=== PATIENT | female | born 1975 | race Caucasian/White ===

== ENCOUNTER 2018-02-22 17:17 | Inpatient (IN) | payer MEDICAID ==
[~2018-02-22] VITALS: Ht 154.9 cm; Wt 95.7 kg
[2018-02-22 17:25] VITALS: BP 175/98
[2018-02-22] MEDS ORDERED: MORPHINE SULFATE 4 MG/ML SYR IVP ONE (17:55)
[2018-02-22 18:36] LABS: BASOPHILS # (AUTO) 0.1 K/uL (0.00-0.22); BASOPHILS % (AUTO) 1.5 % (0.0-2.0); EOSINOPHILS # (AUTO) 0.2 K/uL (0-0.4); HEMATOCRIT 41.1 % (36-48); HEMOGLOBIN 13.6 g/dL (12.0-16.0); LYMPHOCYTES # (AUTO) 2.6 K/uL (2.5-16.5); LYMPHOCYTES % (AUTO) 26.8 % (20.5-51.1); MEAN CORPUSCULAR HEMOGLOBIN 27 pg (27-31); MEAN CORPUSCULAR HGB CONC 33 g/dL (33-37); MEAN CORPUSCULAR VOLUME 82.1 fL (80-94); MONOCYTES # (AUTO) 0.5 K/uL (0.8-1.0); MONOCYTES % (AUTO) 5.3 % (1.7-9.3); NEUTROPHILS # (AUTO) 6.3 K/uL (1.8-7.7); NEUTROPHILS % (AUTO) 64.4 % (42.2-75.2); PLATELET COUNT (AUTO) 281 K/uL (140-450); RED CELL DISTRIBUTION WIDTH 13.3 % (11.6-13.7); WHITE BLOOD COUNT (AUTO) 9.8 K/uL (4.8-10.8)
[2018-02-22 18:42] LABS: ANION GAP 14.2 (8-16); CREATININE 0.9 mg/dL (0.6-1.3); POTASSIUM 3.2 mmol/L (3.5-5.1)
[2018-02-22 18:48] LABS: ALBUMIN 3.4 g/dL (3.4-5.0); TOTAL BILIRUBIN 0.3 mg/dL (0.0-1.0)
[2018-02-22 20:26] LABS: APPEARANCE,URINE CLEAR (CLEAR); BILIRUBIN,URINE SMALL (NEGATIVE); BLOOD, URINE MODERATE (NEGATIVE); COLOR,URINE YELLOW (YELLOW); LEUKOCYTE ESTERASE ,URINE NEGATIVE (NEGATIVE); NITRITE, URINE NEGATIVE (NEGATIVE); PH,URINE 6.5 (5.0-9.0); UGLUCOSE NEGATIVE (NEGATIVE)
[2018-02-22 20:29] LABS: AMYLASE 42 U/L (25-115); LIPASE 157 U/L (73-393)
[2018-02-22 20:31] LABS: RBC,URINE 3-10 (FEW) /HPF (0-5); WBC,URINE 0-5 (RARE) /HPF (0-5)
[2018-02-22 20:32] LABS: CALCIUM OXALATE CRYSTALS,UR 30-50 /HPF (None Seen)
[2018-02-22] MEDS ORDERED: HYDROcodone/APAP 7.5/325 MG 1 TAB PO PRN (22:00)
[2018-02-22] MEDS ORDERED: DOCUSATE SODIUM 100 MG GELCAP PO PRN (22:00)
[2018-02-22] MEDS ORDERED: ZOLPIDEM 5 MG TAB PO PRN (22:00)
[2018-02-22] MEDS ORDERED: ONDANSETRON 4 MG/2 ML VIAL IM/IVP PRN (22:00)
[2018-02-22] MEDS ORDERED: LORazepam 0.5 MG TAB PO PRN (22:00)
[2018-02-22] MEDS ORDERED: ACETAMINOPHEN 325 MG TAB PO PRN (22:00)
[2018-02-22] MEDS ORDERED: IBUP-2213 PO (22:04)
[2018-02-22] MEDS ORDERED: LISI-420 PO (22:04)
[2018-02-22 22:35] VITALS: BP 154/92
[2018-02-22 22:37] LABS: PROTHROMBIN TIME 9.3 secs (10.8-13.4)
[2018-02-22] MEDS ORDERED: KETOROLAC 30 MG/ML VIAL IVP PRN (22:40)
[2018-02-22 22:41] LABS: BARBITURATE, URINE NEG. ng/ml (NEG <=200); BENZODIAZEPINE, URINE NEG. ng/mL (NEG <=200); CANNABINOID, URINE NEG. ng/mL (NEG <=50); COCAINE, URINE NEG. ng/mL (NEG <=300); OPIATE, URINE POS. ng/mL (NEG <=2000); PHENCYCLIDINE SCREEN,URINE NEG. ng/mL (NEG <=25)
[2018-02-22 22:42] LABS: FREE T4 (FREE THYROXINE) 0.96 ng/dL (0.76-1.46); MAGNESIUM 1.8 mg/dL (1.8-2.4); PHOSPHORUS 1.9 mg/dL (2.5-4.9); THYROID STIMULATING HORMONE 2.09 uIU/mL (0.34-3.74)
[2018-02-22] MEDS: NACL 0.9% 1,000 ML IV SCH (22:55)
[2018-02-22] MEDS ORDERED: KETOROLAC 30 MG/ML VIAL ONE (22:59)
[2018-02-22] MEDS ORDERED: PANTOPRAZOLE 40 MG INJ VIAL IVP SCH (23:30)
[2018-02-22] MEDS ORDERED: ALUMINUM HYD/MAG/SIMETHICONE 30 ML UDC PO SCH (23:30)
[2018-02-23] MEDS ORDERED: KCL 20 MEQ/WATER INJ PREMIX 100 ML IV SCH (00:30)
[2018-02-23] MEDS ORDERED: SODIUM PHOS / POTASSIUM PHOS 1 PKT PDR PO SCH (01:00)
[2018-02-23] MEDS ORDERED: INFLUENZA VIRUS VACCINE QUAD 0.5 ML SYR IMVAC PRN (01:15)
[2018-02-23] MEDS ORDERED: POTASSIUM CHLORIDE 10 MEQ TABER PO SCH (02:00)
[2018-02-23] MEDS: PNEUMOCOCCAL VACCINE 23 MCG/0.5 ML VIAL IMVAC PRN (02:53)
[2018-02-23 05:59] VITALS: BP 122/69
[2018-02-23 07:30] LABS: BASOPHILS # (AUTO) 0.1 K/uL (0.00-0.22); BASOPHILS % (AUTO) 0.7 % (0.0-2.0); EOSINOPHILS # (AUTO) 0.2 K/uL (0-0.4); EOSINOPHILS % (AUTO) 1.6 % (0.0-4.0); HEMATOCRIT 40.8 % (36-48); HEMOGLOBIN 13.6 g/dL (12.0-16.0); LYMPHOCYTES # (AUTO) 2.3 K/uL (2.5-16.5); LYMPHOCYTES % (AUTO) 23.8 % (20.5-51.1); MEAN CORPUSCULAR HEMOGLOBIN 27 pg (27-31); MEAN CORPUSCULAR HGB CONC 33 g/dL (33-37); MEAN CORPUSCULAR VOLUME 82.1 fL (80-94); MONOCYTES # (AUTO) 0.5 K/uL (0.8-1.0); MONOCYTES % (AUTO) 4.9 % (1.7-9.3); NEUTROPHILS # (AUTO) 6.7 K/uL (1.8-7.7); PLATELET COUNT (AUTO) 268 K/uL (140-450); RED BLOOD CELL COUNT(AUTO) 4.97 MIL/uL (4.20-5.40); RED CELL DISTRIBUTION WIDTH 13.7 % (11.6-13.7); WHITE BLOOD COUNT (AUTO) 9.7 K/uL (4.8-10.8)
[2018-02-23 07:43] LABS: ANION GAP 11.2 (8-16); CARBON DIOXIDE 25.9 mmol/L (21-32); CREATININE 0.6 mg/dL (0.6-1.3); POTASSIUM 4.1 mmol/L (3.5-5.1)
[2018-02-23 08:00] VITALS: BP 113/62
[2018-02-23] MEDS: NACL 0.9% 1,000 ML IV SCH ×2 (08:49→18:50)
[2018-02-23] MEDS: amLODIPine 5 MG TAB PO SCH (09:01)
[2018-02-23 10:08] LABS: MAGNESIUM 1.8 mg/dL (1.8-2.4); PHOSPHORUS 3.6 mg/dL (2.5-4.9)
[2018-02-23 12:00] VITALS: BP 121/70
[2018-02-23] MEDS: SODIUM PHOS / POTASSIUM PHOS 1 PKT PDR PO SCH ×2 (12:48→17:28)
[2018-02-23 16:00] VITALS: BP 125/65
[2018-02-24] VITALS: BP 141/72
[2018-02-24] MEDS: NACL 0.9% 1,000 ML IV SCH (04:24)
[2018-02-24 07:08] LABS: BASOPHILS # (AUTO) 0.1 K/uL (0.00-0.22); BASOPHILS % (AUTO) 0.9 % (0.0-2.0); EOSINOPHILS # (AUTO) 0.2 K/uL (0-0.4); EOSINOPHILS % (AUTO) 3.1 % (0.0-4.0); HEMATOCRIT 39.2 % (36-48); HEMOGLOBIN 13.1 g/dL (12.0-16.0); LYMPHOCYTES # (AUTO) 2.1 K/uL (2.5-16.5); LYMPHOCYTES % (AUTO) 27.1 % (20.5-51.1); MEAN CORPUSCULAR HEMOGLOBIN 28 pg (27-31); MEAN CORPUSCULAR HGB CONC 33 g/dL (33-37); MEAN CORPUSCULAR VOLUME 82.5 fL (80-94); MONOCYTES # (AUTO) 0.4 K/uL (0.8-1.0); MONOCYTES % (AUTO) 4.9 % (1.7-9.3); PLATELET COUNT (AUTO) 257 K/uL (140-450); RED BLOOD CELL COUNT(AUTO) 4.75 MIL/uL (4.20-5.40); RED CELL DISTRIBUTION WIDTH 13.7 % (11.6-13.7); WHITE BLOOD COUNT (AUTO) 7.8 K/uL (4.8-10.8)
[2018-02-24 07:16] LABS: ANION GAP 8.2 (8-16); CARBON DIOXIDE 26.7 mmol/L (21-32); CREATININE 0.6 mg/dL (0.6-1.3); POTASSIUM 3.9 mmol/L (3.5-5.1)
[2018-02-24 08:04] VITALS: BP 126/73
[2018-02-24] MEDS: amLODIPine 5 MG TAB PO SCH (08:45)
[2018-02-24] MEDS ORDERED: MORPHINE SULFATE 2 MG/ML SYR IVP SCH (10:30)
[2018-02-24] MEDS ORDERED: AMLO5TAB4 PO (14:00)
[2018-02-24] MEDS ORDERED: DOCU-299 PO (14:00)
[2018-02-24] MEDS ORDERED: HYDR-5123 PO (14:36)
[2018-02-24] MEDS ORDERED: RANI150C PO (14:37)
[2018-02-24] MEDS: PNEUMOCOCCAL VACCINE 23 MCG/0.5 ML VIAL IMVAC PRN (16:10)
== END 2018-02-24 17:00 | disposition home or self-care (01) ==
LOC: MED 17:17 → MTU 22:03
PROVIDERS: ADMIT General Practice; ATTEND General Practice
PROC: 3E0234Z Introduction of Serum, Toxoid and Vaccine into Muscle, Percutaneous Approach (ICD-10-PCS; principal; 2018-02-24)
PROC: 3E02340 Introduction of Influenza Vaccine into Muscle, Percutaneous Approach (ICD-10-PCS; 2018-02-24)
DX: K80.20 Calculus of gallbladder without cholecystitis without obstruction (principal); R65.10 Systemic inflammatory response syndrome (SIRS) of non-infectious origin without acute organ dysfunction; E66.01 Morbid (severe) obesity due to excess calories; K76.0 Fatty (change of) liver, not elsewhere classified; E83.39 Other disorders of phosphorus metabolism; Z68.41 Body mass index [BMI] 40.0-44.9, adult; K21.9 Gastro-esophageal reflux disease without esophagitis; I10 Essential (primary) hypertension; E87.6 Hypokalemia; Z79.899 Other long term (current) drug therapy; Z98.51 Tubal ligation status; Z83.3 Family history of diabetes mellitus; Z82.49 Family history of ischemic heart disease and other diseases of the circulatory system; Z80.9 Family history of malignant neoplasm, unspecified; Z23 Encounter for immunization
CPT/HCPCS: 36415; 71045; 76705; 78445; 80048; 80053; 80305; 81001; 82150; 83036; 83690; 83735; 83880; 84100; 84439; 84443; 84484; 84703; 85025; 85610; 85730; 87081; 90658; 90732; 93005; 96374; 99285; C9113; J1885; J2270; J3480; J7030; Q0092

== ENCOUNTER 2019-04-15 12:16 | Inpatient (IN) | payer MEDICAID ==
[~2019-04-15] VITALS: Ht 152.4 cm; Wt 92.5 kg
[~2019-04-15 12:16] MED LIST: AMLO5TAB6 PO; DOCU-299 PO; HYDR-5123 PO; RANI150C PO
[2019-04-15 12:23] VITALS: BP 145/77
--- NOTE | 2019-04-15 12:37 | NUR ---
PT AMBULATED TO BED 8.
--- NOTE | 2019-04-15 12:50 | NUR ---
PT C/O RLQ ABDOMINAL AND MIDDLE/LOWER BACK PAIN, FEVER (NO FEVER AT TRIAGE), FREQUENCY, URGENCY OF URINATION AND HEMATURIA SINCE YESTERDAY. DENIES TRAUMA OR INJURY. RR LABORED. RR AT 34. LUNGS CLEAR BILTERALLY. R SIDE OF ABDOMEN TENDER TO TOUCH. BOWEL SOUNDS ACTIVE IN ALL 4 QUADRANTS. PT REPORTS 10/10 PAIN. PT LETHARGIC, SKIN HOT TO TOUCH. PT HAS BEEN TAKING PEDIALYTE AND MOTRIN WITH NO RELIEF FROM PAIN. PMH: KIDNEY STONE, HTN MEDS: AMLODIPINE, IBUPROFEN, AGRIFEN, AMOXICILLIN
--- NOTE | 2019-04-15 12:50 | NUR ---
[place] snyder in EDM - 04/15/19 at 1507 by LINDSEY EXPLAINED TO PT REGARDING CT ABD/PELVIS W CONTRAST BENEFIT AND RISKS. CONSENT SIGNED BY PT. PT AWAKE, ALERT.
--- NOTE | 2019-04-15 13:04 | NUR ---
iv inserted and labs drawn bedside
--- NOTE | 2019-04-15 13:09 | NUR ---
ORAL TEMP 99.0
[2019-04-15] MEDS ORDERED: SODIUM CHLORIDE FLUSH 10 ML SYR IVF STA (13:12)
--- NOTE | 2019-04-15 13:15 | NUR ---
ICE PACK APPLIED TO PTS FOREHEAD
--- NOTE | 2019-04-15 13:17 | NUR ---
PT AMB TO RESTROOM WITH STEADY GAIT
--- NOTE | 2019-04-15 13:27 | NUR ---
RECEIVED REPORT FROM ROSA ELENA IVY SPANISHEH SPEAKING. PT BEDSIDE MONITOR SHOWS ST 120S. BP AND O2 SATS IN NORMAL RANGE, ICE BAG TO FOREHEAD. DAUGHTER AT BEDSIDE. LOOKS LIKE PT IN PAIN, DAUGHTER STATED PT HAS RIGHT FLANK PAIN AND RADIATING TO RIGHT LOWER BACK.WILL NOTIFY .
[2019-04-15 13:44] LABS: APPEARANCE,URINE CLEAR (CLEAR); BILIRUBIN,URINE NEGATIVE (NEGATIVE); BLOOD, URINE 3+ (NEGATIVE); COLOR,URINE YELLOW (YELLOW); LEUKOCYTE ESTERASE ,URINE 1+ (NEGATIVE); NITRITE, URINE NEGATIVE (NEGATIVE); PH,URINE >=9.0 (5.0-9.0); UGLUCOSE NEGATIVE (NEGATIVE)
[2019-04-15 13:50] LABS: HEMATOCRIT 40.5 % (36-48); HEMOGLOBIN 13.5 g/dL (12.0-16.0); MEAN CORPUSCULAR HEMOGLOBIN 27 pg (27-31); MEAN CORPUSCULAR HGB CONC 33 g/dL (33-37); MEAN CORPUSCULAR VOLUME 79.6 fL (80-94); PLATELET COUNT (AUTO) 284 K/uL (140-450); RED BLOOD CELL COUNT(AUTO) 5.08 MIL/uL (4.20-5.40); RED CELL DISTRIBUTION WIDTH 13.5 % (11.6-13.7); WHITE BLOOD COUNT (AUTO) 20.4 K/uL (4.8-10.8)
[2019-04-15 14:10] LABS: RBC,URINE 50-80 /HPF (0-5); WBC,URINE 20-60 /HPF (0-5)
[2019-04-15 14:19] LABS: LYMPHOCYTES % (MANUAL) 9 % (20-46); MONOCYTES % (MANUAL) 5 % (5-12)
[2019-04-15] MEDS ORDERED: NACL 0.9% 1,000 ML IV SCH ×2 (14:19→16:16)
[2019-04-15] MEDS ORDERED: MORPHINE SULFATE 4 MG/ML SYR IVP ONE (14:20)
--- NOTE | 2019-04-15 14:50 | NUR ---
EXPLAINED TO PT REGARDING CT ABD/PELVIS W CONTRAST BENEFIT AND RISKS. CONSENT SIGNED BY PT. PT AWAKE, ALERT.
[2019-04-15 14:58] LABS: ANION GAP 17.4 (8-16); CARBON DIOXIDE 21.4 mmol/L (21-32); CREATININE 0.8 mg/dL (0.6-1.3); POTASSIUM 3.8 mmol/L (3.5-5.1)
[2019-04-15 14:59] LABS: ALBUMIN 3.6 g/dL (3.4-5.0)
--- NOTE | 2019-04-15 16:00 | NUR ---
PT STATED SHE FEELS BETTER. TWO DAUGHTERS AT BEDSIDE.
[2019-04-15] MEDS ORDERED: cefTRIAXone 1,000 MG in LIDOCAINE MPF 1% 2.1 ML IM SCH (16:20)
[2019-04-15] MEDS ORDERED: cefTRIAXone 1,000 MG VIAL ONE (16:31)
[2019-04-15] MEDS ORDERED: LIDOCAINE MPF 1% 5 ML ONE (16:32)
[2019-04-15] MEDS ORDERED: MORPHINE SULFATE 2 MG/ML SYR IVP PRN (16:35)
[2019-04-15] MEDS ORDERED: LISINOPRIL 20 MG TAB PO SCH (17:00)
[2019-04-15] MEDS: ACETAMINOPHEN 325 MG TAB PO PRN (17:08)
--- NOTE | 2019-04-15 17:10 | NUR ---
RECHED TEMP 100.6F. TYLENOL 650 MG GIVEN ORDERED.
[2019-04-15] MEDS ORDERED: LISINOPRIL 5 MG TAB PO SCH ×2 (17:11→17:12)
--- NOTE | 2019-04-15 17:25 | NUR ---
report given to yajaira MICHAELS. [facility]. pt's with pt. vitals stable.
--- NOTE | 2019-04-15 17:28 | NUR ---
PATIENT ARRIVED ON THE UNIT RECEIVED BEDSIDE REPORT FROM FRENCH BINDER ALDAIR. PT AMBULATED FROM THE GURNEY TO THE BED WITH A STEADY GAIT. PERFORMED HEAD TO TOE ASSESSMENT. OBTAINED MEDICAL HISTORY PERFORMED HEAD TO TOE ASSESSMENT. OBTAINED MRSA NARES. WILL CONTINUE TO MONITOR.
[2019-04-15] MEDS: ONDANSETRON 4 MG/2 ML VIAL IM/IVP PRN (17:41)
[2019-04-15] MEDS: NACL 0.9% 1,000 ML IV SCH (17:41)
[2019-04-15 18:05] VITALS: BP 127/72
[2019-04-15 18:19] LABS: CHOL/HDL RATIO 3.2 (1-4.5); FREE T4 (FREE THYROXINE) 1.13 ng/dL (0.76-1.46); MAGNESIUM 1.9 mg/dL (1.8-2.4); THYROID STIMULATING HORMONE 1.18 uIU/mL (0.34-3.74)
[2019-04-15 18:25] LABS: PROTHROMBIN TIME 10.1 secs (10.8-13.4)
--- NOTE | 2019-04-15 19:15 | NUR ---
ENDORSED PT TO PM RN PT AWAKE IN BED PT ON TELE MONITORING. PT AT BEDSIDE ALL SAFETY MEASURES ARE IN PLACE. IV INFUSING ALL SAFETY MEASURES ARE IN PLACE
--- NOTE | 2019-04-15 19:20 | NUR ---
RECEIVED FROM AM RN IN BED WITH MALE VISITOR. PT. A/O X 4. ROM X 4. CLEAR SPEECH. CARE PLANS FOR THE NIGHT DISCUSSED WITH THEM AND CALL LIGHT USE EXPLAINED. DENIES PAIN AT THIS TIME. ENCOURAGE TO CALL FOR ANY PAIN SHE MIGHT HAVE OR IF SHE NEEDS HELP. TELEMETRY MONITORING. DX. OF PYELONEPHRITIS AND C/O SOB REASON FOR BEING IN ER. IVF SITE TO RAC INTACT AND NO S/S OF INFILTRATION.
[2019-04-15 20:00] VITALS: BP 123/59
--- NOTE | 2019-04-15 21:57 | NUR ---
PT. AWAKE AT THIS TIME AND WENT RESTROOM LOCATED INSIDE ROOM TO URINATE. STAND BY ASSIST PROVIDED. NOTED ABLE TO WALK BY HERSELF INDEPENDENTLY WITH OUT ASSIST. ABLE TO VERBALIZE NEEDS WELL. IVF SITE INTACT TO LAC.
[2019-04-16] VITALS: BP 97/52
--- NOTE | 2019-04-16 00:01 | NUR ---
SLEEPING WELL. NO RESTLESSNESS. CALL LIGHT BESDIE HER FOR EASY ACCESS. TELEMETRY MONITORING. A/O X 4.
[2019-04-16] MEDS: NACL 0.9% 1,000 ML IV SCH ×4 (02:20→20:54)
--- NOTE | 2019-04-16 02:34 | NUR ---
AWAKE AND STANDBY ASSIST TO RESTROOM TO URINATE. INDEPENDENT. USES CALL LIGHT FOR HELP. NO COMPLAINT OF PAIN. MADE SURE PT. SAFE BACK IN BED. DENIES PAIN.TELEMETRY MONITORING.
[2019-04-16 04:00] VITALS: BP 122/63
--- NOTE | 2019-04-16 04:50 | NUR ---
MORNING PERSONAL HYGIENE RENDERED BY PROFESSOR OF VEGETABLE SCIENCE'S. SEEN AMBULATING AROUND. REQUESTED FOR PAIN RELIEVER RT LOWER ABD PAIN AND TO BACK FLANK. MEDICATED REQUESTED.
[2019-04-16 06:44] LABS: BASOPHILS % (AUTO) 0.4 % (0.0-2.0); HEMATOCRIT 39.3 % (36-48); HEMOGLOBIN 12.9 g/dL (12.0-16.0); LYMPHOCYTES # (AUTO) 1.3 K/uL (2.5-16.5); LYMPHOCYTES % (AUTO) 11.4 % (20.5-51.1); MEAN CORPUSCULAR HEMOGLOBIN 27 pg (27-31); MEAN CORPUSCULAR HGB CONC 33 g/dL (33-37); MEAN CORPUSCULAR VOLUME 81.4 fL (80-94); MONOCYTES # (AUTO) 0.9 K/uL (0.8-1.0); MONOCYTES % (AUTO) 7.8 % (1.7-9.3); NEUTROPHILS # (AUTO) 9.5 K/uL (1.8-7.7); NEUTROPHILS % (AUTO) 80.4 % (42.2-75.2); PLATELET COUNT (AUTO) 231 K/uL (140-450); RED BLOOD CELL COUNT(AUTO) 4.83 MIL/uL (4.20-5.40); RED CELL DISTRIBUTION WIDTH 13.5 % (11.6-13.7); WHITE BLOOD COUNT (AUTO) 11.8 K/uL (4.8-10.8)
[2019-04-16] MEDS ORDERED: SODIUM PHOS / POTASSIUM PHOS 1 PKT PDR PO SCH (06:45)
[2019-04-16 06:56] LABS: ANION GAP 13.1 (8-16); CARBON DIOXIDE 25.8 mmol/L (21-32); CREATININE 0.7 mg/dL (0.6-1.3); POTASSIUM 3.9 mmol/L (3.5-5.1)
--- NOTE | 2019-04-16 06:57 | NUR ---
PT. AWAKE AND ALERT. INDEPENDENT. CALL LIGHT WITH IN REACH AND ABLE TO VERBALIZE NEEDS WELL. SLEPT WELL THIS SHIFT. MEDICATED X 1 WITH PAIN RELIEVER.
--- NOTE | 2019-04-16 07:49 | NUR ---
RECEIVED PT FROM PRINTER HELPER FOR CONTINUITY OF CARE. PT IS AAOX 4, COOPERATIVE. PT AMBULATORY. HX OF HTN. PT DENIES ANY OTHER HX. PT HAS LEFT AC 20G INFUSING NS @ 120ML/HR. PT STATES SHE HAS PAIN AND FEELS FEBRILE. TEMP IS 102.9. WILL MEDICATE PT FOR PAIN AND FEVER. PT AMBULATORY. SKIN IS INTACT. DISCUSSED POC WITH PT AND PT VERBALIZED UNDERSTANDING. ALL OTHER NEEDS MET AT THIS TIME. BOARD UPDATED. BED IN LOW POSITION, CALL LIGHT WITHIN REACH.
[2019-04-16 08:00] VITALS: BP 136/78
--- NOTE | 2019-04-16 08:17 | NUR ---
PATIENT HAS BEEN SCREENED AND CATEGORIZED LOW NUTRITION RISK. PATIENT WILL BE SEEN WITHIN 7 DAYS OF ADMISSION. 04/22/[address]
[2019-04-16] MEDS: amLODIPine 5 MG TAB PO SCH (08:18)
[2019-04-16] MEDS: LACTOBACILLUS RHAMNOSUS GG 1 EACH CAP PO SCH (08:18)
[2019-04-16] MEDS: ACETAMINOPHEN 325 MG TAB PO PRN ×2 (08:19→19:49)
[2019-04-16] MEDS ORDERED: KETOROLAC 15 MG/ML VIAL IVP SCH (08:23)
[2019-04-16] MEDS: cefTRIAXone 2,000 MG in DEXTROSE 5% 100 ML IV SCH (08:25)
[2019-04-16] MEDS: HYDROcodone/APAP 7.5/325 MG 1 TAB PO PRN (08:25)
--- NOTE | 2019-04-16 08:59 | NUR ---
ADMINISTERED MORNING MEDS TO PT. PT TOLERATED WELL. PT COMPLAINING OF PAIN. NORCO GIVEN. ALSO PT COMPLAINING OF NAUSEA. ZOFRAN GIVEN. PT HAS FEVER OF 102.9. TYLENOL GIVEN. WILL REASSESS PT FOR MED EFFECTIVENESS. ALL OTHER NEEDS MET. WILL CONTINUE TO ROUND FREQUENTLY ON PT.
--- NOTE | 2019-04-16 11:24 | NUR ---
PT RESTING IN BED. ALL NEEDS MET. WILL CONTINUE TO ROUND FREQUENTLY ON PT. BED IN LOW POSITION, CALL LIGHT WITHIN REACH.
[2019-04-16 11:54] LABS: MAGNESIUM 1.9 mg/dL (1.8-2.4); PHOSPHORUS 1.9 mg/dL (2.5-4.9)
[2019-04-16 12:00] VITALS: BP 115/60
--- NOTE | 2019-04-16 13:55 | NUR ---
PT RESTING IN BED. ALL NEEDS MET. WILL CONTINUE TO ROUND ON PT.
[2019-04-16] MEDS ORDERED: KETOROLAC 15 MG/ML VIAL IVP PRN (14:30)
--- NOTE | 2019-04-16 15:33 | NUR ---
TRUNG assessment/discharge plan High Risk DC Screen Yes Name: [facility] Home Relationship: daughter Pre-Admission Living Arrangements: Lives with Other Other: 4 children Prior ADL Independent Current Home Health Name/Tel: N/A Current DME/02 Name/Tel: N/A Current Hospice Name/Tel: N/A Current Dialysis Name/Tel: N/A Healthcare Decision Maker: Patient Advance Directive No Information Taught: Advance Directive Community Resources Person Taught: Patient Teaching Tools: Community Resources Computer Generated Print Verbal Factors Affecting Learning: None Participation Level: Active Evaluation: Gestures Understanding Verbalizes Understanding Educator: TRUNG Aranda Discipline: Case Mgt/Social Svcs Tentative Discharge Plan Summary: Patient is a 43 year old female admitted for pyelonephritis. I met with patient at bedside. Patient alert and oriented x4. Patient speaks Khmer. Patient lives at home with her 4 children and plans to return home upon discharge. Patient goes to [place] [id number] for medical care. She does not have any difficulty filling her prescriptions at pharmacy. She denied hx of mental health. She also denied alcohol/substance abuse. I provided her with education on [email or web address] for community resources. Industrial Engineering Manager and/or Technical Translator will follow up as needed. Signature: TRUNG Aranda Date: Apr 16, 2019
--- NOTE | 2019-04-16 15:57 | NUR ---
PT ASLEEP. ALL NEEDS MET. NO SIGNS OF PAIN OR DISTRESS. WILL CONTINUE TO ROUND FREQUENTLY ON PT.
[2019-04-16 16:00] VITALS: BP 112/66
[2019-04-16] MEDS: ONDANSETRON 4 MG/2 ML VIAL IM/IVP PRN (17:14)
--- NOTE | 2019-04-16 17:31 | NUR ---
PT RESTING IN BED WITH FAMILY AT BEDSIDE. ALL NEEDS MET. WILL CONTINUE TO ROUND ON PT.
--- NOTE | 2019-04-16 19:34 | NUR ---
ENDORSED PT TO CORPORATE ACCOUNT EXECUTIVE FOR CONTINUITY OF CARE. PT IN STABLE CONDITION AT THIS TIME.
--- NOTE | 2019-04-16 19:35 | NUR ---
RECEIVED BEDSIDE REPORT FROM AM SHIFT NURSE. PATIENT IS LYING IN BED AWAKE AND ALERT WITH FAMILY MEMBER AT BEDSIDE. NO SOB OR DISTRESS NOTED AT THIS TIME. ON ROOM AIR. IV ACCESS ON RIGHT AC 20 GAUGE, PATENT, INTACT AND INFUSING WELL. PATIENT IS AMBULATORY. BED IN LOW, SAFETY MEASURES IN PLACE. BOARD UPDATED. INITIAL ASSESSMENT DONE. CALL LIGHT PLACED WITHIN PATIENT REACH. WILL CONTINUE TO MONITOR PATIENT.
--- NOTE | 2019-04-16 19:52 | NUR ---
PRN ACETAMINOPHEN GIVEN AT THIS TIME FOR ORAL TEMPERATURE OF 101.2. COOLING MEASURES RENDERED. NO DISTRESS NOTED. WILL CONTINUE TO MONITOR PATIENT.
[2019-04-16 20:15] VITALS: BP 137/73
--- NOTE | 2019-04-16 21:30 | NUR ---
TEMPERATURE RECHECKED WITH ORAL TEMP OF 99.1. COOLING MEASURES STILL IN PLACE. NO DISTRESS NOTED. WILL CONTINUE TO MONITOR PATIENT.
--- NOTE | 2019-04-16 23:14 | NUR ---
TEMPERATURE RECHECKED WITH ORAL TEMP OF 98.4. NO DISTRESS NOTED. WILL CONTINUE TO MONITOR PATIENT.
[2019-04-17 00:18] VITALS: BP 116/68
--- NOTE | 2019-04-17 03:03 | NUR ---
ROUNDS DONE. PATIENT RESTING WITH EYES CLOSED. VISIBLE CHEST RISE AND FALL NOTED. CALL LIGHT PLACED WITHIN PATIENT REACH. WILL CONTINUE TO MONITOR PATIENT.
--- NOTE | 2019-04-17 04:05 | NUR ---
VITALS TAKEN. NO DISTRESS NOTED. CALL LIGHT WITHIN PATIENT REACH. WILL CONTINUE TO MONITOR PATIENT.
[2019-04-17 04:17] VITALS: BP 124/73
[2019-04-17] MEDS: NACL 0.9% 1,000 ML IV SCH ×2 (05:43→17:37)
[2019-04-17] MEDS: ACETAMINOPHEN 325 MG TAB PO PRN (05:43)
[2019-04-17] MEDS: ONDANSETRON 4 MG/2 ML VIAL IM/IVP PRN (05:49)
--- NOTE | 2019-04-17 05:55 | NUR ---
PRN ZOFRAN GIVEN AT THIS TIME FOR NAUSEA AND VOMITING. PRN TYLENOL ALSO GIVEN FOR MILD HEADACHE. COOLING MEASURES IN PLACE FOR ORAL TEMP OF 99.4. CALL LIGHT WITHIN PATIENT REACH. WILL CONTINUE TO MONITOR PATIENT.
--- NOTE | 2019-04-17 06:32 | NUR ---
PATIENT IN STABLE CONDITION. CALL LIGHT WITHIN PATIENT REACH. WILL ENDORSE TO AM SHIFT NURSE FOR CONTINUITY OF CARE.
--- NOTE | 2019-04-17 07:05 | NUR ---
RECEIVED BEDSIDE REPORT FROM NIGHT NURSE. PATIENT IS AWAKE, ALERT, ORIENTED X4. IV PATENT AND INTACT. PLAN OF CARE WAS DISCUSSED. ALL SAFETY MEASURES IN PLACE. BED IS AT LOW POSITION. CALL LIGHT WITHIN REACH. WILL CONTINUE TO MONITOR.
[2019-04-17 07:50] VITALS: BP 122/77
[2019-04-17 07:55] LABS: BASOPHILS # (AUTO) 0.1 K/uL (0.00-0.22); BASOPHILS % (AUTO) 0.9 % (0.0-2.0); EOSINOPHILS % (AUTO) 0.4 % (0.0-4.0); HEMATOCRIT 36.4 % (36-48); HEMOGLOBIN 12.1 g/dL (12.0-16.0); LYMPHOCYTES # (AUTO) 1.4 K/uL (2.5-16.5); LYMPHOCYTES % (AUTO) 21.9 % (20.5-51.1); MEAN CORPUSCULAR HEMOGLOBIN 27 pg (27-31); MEAN CORPUSCULAR HGB CONC 33 g/dL (33-37); MEAN CORPUSCULAR VOLUME 80.8 fL (80-94); MONOCYTES # (AUTO) 0.8 K/uL (0.8-1.0); NEUTROPHILS # (AUTO) 4.1 K/uL (1.8-7.7); NEUTROPHILS % (AUTO) 64.8 % (42.2-75.2); PLATELET COUNT (AUTO) 227 K/uL (140-450); RED BLOOD CELL COUNT(AUTO) 4.51 MIL/uL (4.20-5.40); RED CELL DISTRIBUTION WIDTH 13.2 % (11.6-13.7); WHITE BLOOD COUNT (AUTO) 6.4 K/uL (4.8-10.8)
[2019-04-17] MEDS: amLODIPine 5 MG TAB PO SCH (08:21)
[2019-04-17] MEDS: CALCIUM CARB/VIT-D 500 MG/200 IU 1 TAB PO SCH (08:21)
[2019-04-17] MEDS: LACTOBACILLUS RHAMNOSUS GG 1 EACH CAP PO SCH (08:21)
[2019-04-17] MEDS: cefTRIAXone 2,000 MG in DEXTROSE 5% 100 ML IV SCH (08:22)
[2019-04-17 08:23] LABS: MAGNESIUM 1.9 mg/dL (1.8-2.4); PHOSPHORUS 2.5 mg/dL (2.5-4.9)
--- NOTE | 2019-04-17 09:05 | NUR ---
PATIENT IS AWAKE, ALERT, ORIENTED X4. PATIENT ATE BREAKFAST. ALL AM MEDICATIONS GIVEN ORDERED. NO S/S OF DISTRESS NOTED AT THIS TIME. SAFETY MEASURES IN PLACE. CALL LIGHT WITHIN REACH.
[2019-04-17 09:28] LABS: ANION GAP 14.7 (8-16); CREATININE 0.6 mg/dL (0.6-1.3); POTASSIUM 3.7 mmol/L (3.5-5.1)
--- NOTE | 2019-04-17 11:05 | NUR ---
PATIENT IS AAOX4. PATIENT IS TALKING WITH HER ROOMATE. NO S/S OF DISTRESS NOTED. DENIES ANY PAIN OR DISCOMFORT AT THIS TIME. IVF INFUSING @ 120ML, TOLERATING WELL. NO NAUSEA OR VOMITING. CALL LIGHT WITHIN REACH. WILL CONTINUE TO MONITOR.
[2019-04-17 12:00] VITALS: BP 133/73
--- NOTE | 2019-04-17 12:19 | NUR ---
PATIENT IS AMBULATORY WITH STEADY GAIT. PATIENT REQUESTED TO SHOWER, ASSISTED PATIENT TO THE SHOWER ROOM WITH STANDBY ASSIST. PATIENT REMAINS STABLE, AAOX4.
--- NOTE | 2019-04-17 12:55 | NUR ---
PATIENT ASSISTED BACK TO BED. PATIENT REMAINS STABLE. IV INTACT AND PATENT TO LEFT FOREARM. TELE MONITOR IN PLACE. CALL LIGHT WITHIN REACH. NEEDS MET AT THIS TIME.
--- NOTE | 2019-04-17 15:05 | NUR ---
PATIENT IN BED, AWAKE, ALERT AND ORIENTED X4. FAMILY AT BEDSIDE. NO S/S OF DISTRESS NOTED. IV INTACT AND PATENT TO LEFT FOREARM. CALL LIGHT WITHIN REACH.
[2019-04-17 16:00] VITALS: BP 137/80
--- NOTE | 2019-04-17 17:35 | NUR ---
PATIENT AMBULATING IN THE HALLWAY WITH STAND BY ASSIST.
--- NOTE | 2019-04-17 18:52 | NUR ---
PATIENT IS IN STABLE CONDITION. WILL ENDORSE TO NIGHT NURSE FOR CONTINUITY OF CARE.
--- NOTE | 2019-04-17 19:05 | NUR ---
RECEIVED BESIDE REPORT FROM AM SHIFT NURSE. PATIENT IS ON BED IN HIGH FOWLERS POSITION. FAMILY MEMBER IS AT BESIDE. NO SOB OR DISTRESS NOTED. ON ROOM AIR. IV ACCESS ON LEFT AC 20 GAUGE, PATENT, INTACT AND INFUSING WELL. PATIENT IS AMBULATORY. BED IN LOW. SAFETY MEASURES IN PLACE. INITIAL ASSESSMENT DONE. BOARD UPDATED. CALL LIGHT PLACED WITHIN PATIENT REACH. WILL CONTINUE TO MONITOR PATIENT.
[2019-04-17] MEDS: HYDROcodone/APAP 7.5/325 MG 1 TAB PO PRN (19:34)
[2019-04-17 20:15] VITALS: BP 114/64
--- NOTE | 2019-04-17 22:04 | NUR ---
ROUNDS DONE AT THIS TIME. PATIENT RESTING COMFORTABLY, VISIBLE CHEST RISE AND FALL NOTED. CALL LIGHT WITHIN PATIENT REACH. WILL CONTINUE TO MONITOR PATIENT.
--- NOTE | 2019-04-18 00:15 | NUR ---
VITALS TAKEN AT THIS TIME. VISIBLE CHEST RISE AND FALL NOTED. NO SOB OR DISTRESS NOTED. WILL CONTINUE TO MONITOR PATIENT.
[2019-04-18 00:20] VITALS: BP 106/66
[2019-04-18] MEDS: NACL 0.9% 1,000 ML IV SCH ×2 (02:09→09:47)
--- NOTE | 2019-04-18 02:18 | NUR ---
ROUNDS DONE. VISIBLE CHEST RISE AND FALL NOTED. CALL LIGHT PLACED WITHIN PATIENT REACH. WILL CONTINUE TO MONITOR PATIENT.
--- NOTE | 2019-04-18 04:05 | NUR ---
VITALS TAKEN AT THIS TIME. VISIBLE CHEST RISE AND FALL NOTED. WILL CONTINUE TO MONITOR PATIENT.
[2019-04-18 04:20] VITALS: BP 111/69
--- NOTE | 2019-04-18 06:58 | NUR ---
PATIENT IN STABLE CONDITION. CALL LIGHT WITHIN PATIENT REACH. WILL ENDORSE TO AM SHIFT NURSE FOR CONTINUITY OF CARE.
--- NOTE | 2019-04-18 07:20 | NUR ---
RECEIVED ,PT FROM INTERNAL CONTROL CONSULTANT NURSE, FERNANDO, PT IS AWAKE AND LYING ON THE BED WITH SIDE RAILS UP AND CALL LIGHT WITHIN REACH, PERIPHERAL LINE ON THE LEFT AC G. 20 WITH IVF NS INFUSING AT 120ML/HR, PT DENIES PAIN ADN NO SOB NOTED, AMBULATES AND AOX4, WILL CONTINUE TO MONITOR PT.
[2019-04-18 07:34] LABS: BASOPHILS % (AUTO) 0.6 % (0.0-2.0); EOSINOPHILS # (AUTO) 0.1 K/uL (0-0.4); EOSINOPHILS % (AUTO) 2.2 % (0.0-4.0); HEMATOCRIT 36.7 % (36-48); LYMPHOCYTES # (AUTO) 1.6 K/uL (2.5-16.5); MEAN CORPUSCULAR HEMOGLOBIN 27 pg (27-31); MEAN CORPUSCULAR HGB CONC 33 g/dL (33-37); MEAN CORPUSCULAR VOLUME 81.1 fL (80-94); MONOCYTES # (AUTO) 0.8 K/uL (0.8-1.0); NEUTROPHILS # (AUTO) 3.1 K/uL (1.8-7.7); PLATELET COUNT (AUTO) 224 K/uL (140-450); RED BLOOD CELL COUNT(AUTO) 4.53 MIL/uL (4.20-5.40); RED CELL DISTRIBUTION WIDTH 13.5 % (11.6-13.7); WHITE BLOOD COUNT (AUTO) 5.6 K/uL (4.8-10.8)
[2019-04-18 07:38] LABS: ANION GAP 12.5 (8-16); CARBON DIOXIDE 26.6 mmol/L (21-32); CREATININE 0.6 mg/dL (0.6-1.3); POTASSIUM 4.1 mmol/L (3.5-5.1)
[2019-04-18 07:50] LABS: PHOSPHORUS 3.5 mg/dL (2.5-4.9)
[2019-04-18 08:00] VITALS: BP 113/75
[2019-04-18 08:07] LABS: LYMPHOCYTES % (AUTO) 27.7 % (20.5-51.1); MONOCYTES % (AUTO) 14.1 % (1.7-9.3); NEUTROPHILS % (AUTO) 55.4 % (42.2-75.2)
[2019-04-18] MEDS: LACTOBACILLUS RHAMNOSUS GG 1 EACH CAP PO SCH (09:39)
[2019-04-18] MEDS: amLODIPine 5 MG TAB PO SCH (09:39)
[2019-04-18] MEDS: CALCIUM CARB/VIT-D 500 MG/200 IU 1 TAB PO SCH (09:40)
[2019-04-18] MEDS: cefTRIAXone 2,000 MG in DEXTROSE 5% 100 ML IV SCH (09:43)
--- NOTE | 2019-04-18 09:47 | NUR ---
PT IS AWAKE AND AM SCHEDULED MEDICATIONS WERE GIVEN ORALLY, SUBQ AND IVPB, PARAMETERS CHECKED TOLERATED, AND WILL MONITOR PT
--- NOTE | 2019-04-18 09:49 | NUR ---
PT'S IV LINE WAS INFILTRATED AND A NEW PERIPHERAL LINE WILL BE RE-INSERTED. PT AGREED TO HAVE ANOTHER IV LINE INSERTION FOR THE IV MEDICATION.
[2019-04-18 12:00] VITALS: BP 123/75
[2019-04-18] MEDS ORDERED: LEVO750T2 PO (12:37)
--- NOTE | 2019-04-18 12:45 | NUR ---
PT IS WATCHING TV WITH BOYFRIEND ON BEDSIDE, DENIES PAIN.
[2019-04-18 16:00] VITALS: BP 127/74
[2019-04-18] MEDS ORDERED: LACT10CA PO (17:25)
--- NOTE | 2019-04-18 17:30 | NUR ---
DISCHARGED PT TO HOME WITH BOYFRIEND, DISCHARGED TEACHINGS AND MEDICATION INSTRUCTIONS GIVEN TO PT AND PT VERBALIZED UNDERSTANDING, IV LINE AND ARM BAND REMOVED, PT IS STABLE AT THIS TIME AND DENIES ANY PAIN.
== END 2019-04-18 17:30 | disposition home or self-care (01) | DRG 720 ==
LOC: MED 12:16 → MTU 16:32
PROVIDERS: ADMIT General Practice; ATTEND General Practice
DX: A41.51 Sepsis due to Escherichia coli [E. coli] (principal); E83.39 Other disorders of phosphorus metabolism; I10 Essential (primary) hypertension; N12 Tubulo-interstitial nephritis, not specified as acute or chronic; R73.03 Prediabetes; Z79.899 Other long term (current) drug therapy; Z98.51 Tubal ligation status; Z82.3 Family history of stroke; Z83.3 Family history of diabetes mellitus; Z82.49 Family history of ischemic heart disease and other diseases of the circulatory system
CPT/HCPCS: 36415; 71045; 76770; 80048; 80053; 81001; 81025; 82550; 83036; 83605; 83690; 83735; 83880; 84100; 84439; 84443; 85025; 85610; 85730; 87081; 87086; 87186; 96361; 96372; 96374; 99285; J0696; J1644; J2001; J2270; J2405; J7030; J7060; Q0092; Q9967

== ENCOUNTER 2019-09-20 14:14 | Emergency (ER) | payer MEDICAID, SELFPAY ==
[~2019-09-20] VITALS: Ht 154.9 cm; Wt 95.3 kg
[~2019-09-20 14:14] MED LIST changes: -DOCU-299 PO; -HYDR-5123 PO; +LACT10CA PO; +LEVO750T2 PO; -RANI150C PO
[2019-09-20 14:48] VITALS: BP 139/91
--- NOTE | 2019-09-20 14:55 | NUR ---
urine cup handed to pt for sample
[2019-09-20 15:51] LABS: BILIRUBIN,URINE 1+ (NEGATIVE); BLOOD, URINE 3+ (NEGATIVE); COLOR,URINE YELLOW (YELLOW); LEUKOCYTE ESTERASE ,URINE TRACE (NEGATIVE); NITRITE, URINE NEGATIVE (NEGATIVE); UGLUCOSE NEGATIVE (NEGATIVE)
[2019-09-20 15:57] LABS: BASOPHILS # (AUTO) 0.1 K/uL (0.00-0.22); EOSINOPHILS # (AUTO) 0.1 K/uL (0-0.4); EOSINOPHILS % (AUTO) 1.2 % (0.0-4.0); HEMOGLOBIN 14.2 g/dL (12.0-16.0); LYMPHOCYTES # (AUTO) 1.4 K/uL (2.5-16.5); LYMPHOCYTES % (AUTO) 28.9 % (20.5-51.1); MEAN CORPUSCULAR HEMOGLOBIN 27 pg (27-31); MEAN CORPUSCULAR HGB CONC 33 g/dL (33-37); MEAN CORPUSCULAR VOLUME 81.5 fL (80-94); MONOCYTES # (AUTO) 0.3 K/uL (0.8-1.0); MONOCYTES % (AUTO) 6.7 % (1.7-9.3); NEUTROPHILS # (AUTO) 3.1 K/uL (1.8-7.7); NEUTROPHILS % (AUTO) 62.2 % (42.2-75.2); PLATELET COUNT (AUTO) 234 K/uL (140-450); RED BLOOD CELL COUNT(AUTO) 5.28 MIL/uL (4.20-5.40); RED CELL DISTRIBUTION WIDTH 14.2 % (11.6-13.7); WHITE BLOOD COUNT (AUTO) 4.9 K/uL (4.8-10.8)
[2019-09-20 16:01] LABS: APPEARANCE,URINE HAZY (CLEAR)
--- NOTE | 2019-09-20 16:03 | NUR ---
Patient ambulated to bed 9. RN evaluating patient at bedside.
[2019-09-20 16:16] LABS: ALBUMIN 3.7 g/dL (3.4-5.0); CARBON DIOXIDE 27.7 mmol/L (21-32); CREATININE 0.7 mg/dL (0.6-1.3); POTASSIUM 3.7 mmol/L (3.5-5.1); TOTAL BILIRUBIN 0.6 mg/dL (0.0-1.0)
[2019-09-20] MEDS ORDERED: KETOROLAC 60 MG/2 ML VIAL IM ONE (16:25)
[2019-09-20] MEDS ORDERED: NACL 0.9% 1,000 ML IV ONE (16:30)
[2019-09-20] MEDS ORDERED: ONDANSETRON 4 MG/2 ML VIAL IVP ONE (16:30)
[2019-09-20 16:31] LABS: RBC,URINE 0-5 /HPF (0-5); WBC,URINE 0-5 /HPF (0-5)
--- NOTE | 2019-09-20 16:41 | NUR ---
pt to ct via wheelchair
[2019-09-20] MEDS ORDERED: KETOROLAC 30 MG/ML VIAL IVP ONE (16:45)
--- NOTE | 2019-09-20 17:10 | NUR ---
Note undone in EDM - 09/20/19 at 1741 by [email or web address] c/o headache 10/07 with cough and n/v/d x 3 days. lungs clear bilterally. rr even and unlabored. pt denies ab pain, cp, or sob. neuro intact: full clear speech, steady gait, equal operating room surgical technician, no drift noted, gcs 15. pt alert marcio wake, ambulatory, vs stable. hx--htn rx---benazepril, ibuprofen
--- NOTE | 2019-09-20 17:10 | NUR ---
c/o headache 10/07 with cough and n/v/d x 3 days. occasional expiratory wheezing. rr even and unlabored. pt denies ab pain, cp, or sob. neuro intact: full clear speech, steady gait, equal maintenance shop clerk, no drift noted, gcs 15. pt alert marcio wake, ambulatory, vs stable. hx--htn rx---benazepril, ibuprofen
--- NOTE | 2019-09-20 17:16 | NUR ---
covid swab collected
--- NOTE | 2019-09-20 17:32 | NUR ---
nadr, pain 07/08
--- NOTE | 2019-09-20 17:35 | NUR ---
pt reports no nausea at this time
[2019-09-20 18:19] VITALS: BP 152/76
--- NOTE | 2019-09-20 18:19 | NUR ---
Patient discharged with v/s stable. Written and verbal after care instructions given and explained. Patient alert, oriented and verbalized understanding of instructions. Ambulatory with steady gait. All questions addressed prior to discharge. ID band removed. Patient advised to follow up with PMD. Rx of PROMETHAZINE, AUGMENTIN, IBUPROFEN, AND AZITHROMYOCIN given. Patient educated on indication of medication including possible reaction and side effects. Opportunity to ask questions provided and answered.
--- NOTE | 2019-09-22 09:11 | NUR ---
RECEIVED CALL FROM LAB FOR +COVID, COPY WILL BE GIVEN TO NEHAL HARKINS FROM INFECTION CONTROL.
== END 2019-09-20 18:19 | disposition home or self-care (01) ==
LOC: MED 14:14 → EEVIPCON 14:14 → MED 18:19
DX: U07.1 COVID-19 (principal); I10 Essential (primary) hypertension; Z98.51 Tubal ligation status
CPT/HCPCS: 36415; 70450; 71045; 80053; 81001; 81025; 84703; 85025; 96361; 96374; 96375; 99285; J1885; J2405; J7030; U0003

== ENCOUNTER 2020-02-24 11:49 | Emergency (ER) | payer MEDICAID, SELFPAY ==
[~2020-02-24] VITALS: Ht 154.9 cm; Wt 92.1 kg
[~2020-02-24 11:49] MED LIST changes: +AMLO-3 PO; -AMLO5TAB6 PO
--- NOTE | 2020-02-24 11:52 | NUR ---
Pt ambulated to bed 06 with steady gait
[2020-02-24 11:57] VITALS: BP 142/85
--- NOTE | 2020-02-24 12:48 | NUR ---
Patient taken to CT scan via gurney by [facility].
--- NOTE | 2020-02-24 12:50 | NUR ---
PT HAS BEEN TAKING TO CT SCAN VIA [facility].
[2020-02-24 13:00] LABS: BASOPHILS # (AUTO) 0.1 K/uL (0.00-0.22); BASOPHILS % (AUTO) 1.2 % (0.0-2.0); EOSINOPHILS # (AUTO) 0.2 K/uL (0-0.4); EOSINOPHILS % (AUTO) 1.6 % (0.0-4.0); HEMATOCRIT 40.9 % (36-48); HEMOGLOBIN 13.6 g/dL (12.0-16.0); LYMPHOCYTES # (AUTO) 2.1 K/uL (2.5-16.5); LYMPHOCYTES % (AUTO) 17.8 % (20.5-51.1); MEAN CORPUSCULAR HEMOGLOBIN 27 pg (27-31); MEAN CORPUSCULAR HGB CONC 33 g/dL (33-37); MEAN CORPUSCULAR VOLUME 82.5 fL (80-94); MONOCYTES # (AUTO) 0.6 K/uL (0.8-1.0); MONOCYTES % (AUTO) 5.2 % (1.7-9.3); NEUTROPHILS # (AUTO) 8.6 K/uL (1.8-7.7); NEUTROPHILS % (AUTO) 74.2 % (42.2-75.2); PLATELET COUNT (AUTO) 279 K/uL (140-450); RED BLOOD CELL COUNT(AUTO) 4.96 MIL/uL (4.20-5.40); RED CELL DISTRIBUTION WIDTH 13.9 % (11.6-13.7); WHITE BLOOD COUNT (AUTO) 11.6 K/uL (4.8-10.8)
--- NOTE | 2020-02-24 13:02 | NUR ---
Patient returned from CT scan.
[2020-02-24 13:23] LABS: CARBON DIOXIDE 23.7 mmol/L (21-32); CREATININE 0.5 mg/dL (0.6-1.3); POTASSIUM 3.7 mmol/L (3.5-5.1)
[2020-02-24 13:29] LABS: ALBUMIN 3.8 g/dL (3.4-5.0); BILIRUBIN,DIRECT 0.1 mg/dL (0.0-0.3); TOTAL BILIRUBIN 0.6 mg/dL (0.0-1.0)
[2020-02-24 13:29] LABS: APPEARANCE,URINE HAZY (CLEAR); BILIRUBIN,URINE NEGATIVE (NEGATIVE); BLOOD, URINE 3+ (NEGATIVE); COLOR,URINE YELLOW (YELLOW); LEUKOCYTE ESTERASE ,URINE 1+ (NEGATIVE); NITRITE, URINE POSITIVE (NEGATIVE); PH,URINE 5.5 (5.0-9.0); UGLUCOSE NEGATIVE (NEGATIVE)
[2020-02-24 13:40] LABS: RBC,URINE 20-50 /HPF (0-5)
[2020-02-24 13:43] LABS: WBC,URINE 60-80 /HPF (0-5)
--- NOTE | 2020-02-24 13:45 | NUR ---
PT AMBULATED TO BATHROOM, STEADY GAIT.
[2020-02-24] MEDS ORDERED: cefTRIAXone 1,000 MG in LIDOCAINE MPF 1% 2.1 ML IM ONE (14:05)
[2020-02-24] MEDS ORDERED: cefTRIAXone 1,000 MG VIAL ONE (14:11)
[2020-02-24] MEDS ORDERED: LIDOCAINE MPF 1% 5 ML ONE (14:11)
[2020-02-24 15:00] VITALS: BP 133/71
--- NOTE | 2020-02-24 15:00 | NUR ---
Patient discharged with v/s stable. Written and verbal after care instructions given and explained. Patient alert, oriented and verbalized understanding of instructions. Ambulatory with steady gait. All questions addressed prior to discharge. ID band removed. Patient advised to follow up with PMD. Rx of MiraLax, Ibuprofen, and Cephalexin given. Patient educated on indication of medication including possible reaction and side effects. Opportunity to ask questions provided and answered.
== END 2020-02-24 15:00 | disposition home or self-care (01) ==
LOC: MED 11:49
DX: N12 Tubulo-interstitial nephritis, not specified as acute or chronic (principal); N28.89 Other specified disorders of kidney and ureter; N83.201 Unspecified ovarian cyst, right side; I10 Essential (primary) hypertension; Z79.899 Other long term (current) drug therapy
CPT/HCPCS: 36415; 74176; 80048; 80076; 81001; 81025; 83690; 85025; 96372; 99284; J0696; J2001; 87086

== ENCOUNTER 2023-03-22 17:49 | Emergency (ER) | payer MEDICAID ==
[~2023-03-22] VITALS: Ht 154.9 cm; Wt 90.7 kg
[2023-03-22 18:21] VITALS: BP 123/63; PULSE 72; RESP 14; TEMP 98.4; O2SAT 97
[2023-03-22] MEDS ORDERED: NAPR-54 PO (20:34)
[2023-03-22 20:38] VITALS: BP 120/72; PULSE 80; RESP 16; TEMP 98; O2SAT 98
== END 2023-03-22 20:38 | disposition home or self-care (01) ==
LOC: MED 17:49
DX: S63.694A Other sprain of right ring finger, initial encounter (principal); W18.30XA Fall on same level, unspecified, initial encounter; Y93.89 Activity, other specified; Y92.89 Other specified places as the place of occurrence of the external cause; Y99.8 Other external cause status
CPT/HCPCS: 73140; 99283

== ENCOUNTER 2023-07-14 15:51 | Emergency (ER) | payer MEDICAID, OTHER ==
[~2023-07-14] VITALS: Ht 154.9 cm; Wt 95.3 kg
[~2023-07-14 15:51] MED LIST changes: +NAPR-54 PO
[2023-07-14 16:13] VITALS: BP 118/77; PULSE 85; RESP 18; TEMP 97.7; O2SAT 96
[2023-07-14] MEDS ORDERED: [UNRECOGNIZED DRUG - REMARK] TP (16:55)
[2023-07-14] MEDS ORDERED: HYDR28OI3 TP (16:55)
== END 2023-07-14 17:02 | disposition home or self-care (01) ==
LOC: MED 15:51
DX: L30.9 Dermatitis, unspecified (principal); I10 Essential (primary) hypertension; Z79.899 Other long term (current) drug therapy
CPT/HCPCS: 99283

== ENCOUNTER 2023-10-31 16:19 | Emergency (ER) | payer OTHER ==
[~2023-10-31] VITALS: Ht 154.9 cm; Wt 94.3 kg
[~2023-10-31 16:19] MED LIST changes: +HYDR28OI3 TP; +NAPR-337 PO; -NAPR-54 PO; +[UNRECOGNIZED DRUG - REMARK] TP
[2023-10-31 16:24] VITALS: BP 133/64; PULSE 79; RESP 16; TEMP 98; O2SAT 95
[2023-10-31] MEDS ORDERED: IBUP-1842 PO (16:44)
[2023-10-31] MEDS: IBUPROFEN 400 MG TAB PO ONE (17:10)
[2023-10-31 17:20] VITALS: BP 133/64; PULSE 79; RESP 16; TEMP 98; O2SAT 95
== END 2023-10-31 17:26 | disposition home or self-care (01) ==
LOC: MED 16:19
DX: S60.444A External constriction of right ring finger, initial encounter (principal); I10 Essential (primary) hypertension; Z79.899 Other long term (current) drug therapy; W49.04XA Ring or other jewelry causing external constriction, initial encounter; Y92.89 Other specified places as the place of occurrence of the external cause; Y93.89 Activity, other specified; Y99.8 Other external cause status
CPT/HCPCS: 99284